=== PATIENT | female | born 1955 | race Two or more races ===

== ENCOUNTER 2021-11-29 19:24 | Inpatient (IN) | payer OTHER ==
[~2021-11-29] VITALS: Ht 165.1 cm; Wt 95.3 kg
[2021-12-01] MEDS ORDERED: ATORVASTATIN CA20 MG (07:56)
[2021-12-01] MEDS ORDERED: SYNTHROID88 MCG (07:56)
[2021-12-01] MEDS ORDERED: LOSARTAN POTAS100 MG (07:57)
[2021-12-01] MEDS ORDERED: FLUNISOLIDE25 ML (07:57)
== END 2021-12-05 13:56 | disposition expired | DRG 329 ==
LOC: ER 19:24 → O/R 11-30 11:20 → ICU-2 11-30 11:20 → O/R 11-30 15:29 → ICU 12-01 17:23
PROVIDERS: ADMIT Surgery; ATTEND Surgery
PROC: 5A1955Z Respiratory Ventilation, Greater than 96 Consecutive Hours (ICD-10-PCS; 2021-11-30)
PROC: 0BH17EZ Insertion of Endotracheal Airway into Trachea, Via Natural or Artificial Opening (ICD-10-PCS; 2021-11-30)
PROC: BW21ZZZ Computerized Tomography (CT Scan) of Abdomen and Pelvis (ICD-10-PCS; 2021-11-30)
PROC: 4A033R1 Measurement of Arterial Saturation, Peripheral, Percutaneous Approach (ICD-10-PCS; 2021-11-30)
PROC: 0DTN0ZZ Resection of Sigmoid Colon, Open Approach (ICD-10-PCS; principal; 2021-11-30 13:37)
PROC: 05HN33Z Insertion of Infusion Device into Left Internal Jugular Vein, Percutaneous Approach (ICD-10-PCS; 2021-12-02)
PROC: B24BZZZ Ultrasonography of Heart with Aorta (ICD-10-PCS; 2021-12-02)
DX: K63.1 Perforation of intestine (nontraumatic) (principal); J95.821 Acute postprocedural respiratory failure; A41.9 Sepsis, unspecified organism; R65.21 Severe sepsis with septic shock; E87.2 Acidosis; N17.8 Other acute kidney failure; J90 Pleural effusion, not elsewhere classified; Y65.8 Other specified misadventures during surgical and medical care; Y82.8 Other medical devices associated with adverse incidents; Y92.234 Operating room of hospital as the place of occurrence of the external cause; I10 Essential (primary) hypertension; I95.89 Other hypotension; I48.91 Unspecified atrial fibrillation; D69.6 Thrombocytopenia, unspecified; Z20.822 Contact with and (suspected) exposure to COVID-19